=== PATIENT | female | born 1980 | race Caucasian/White ===

== ENCOUNTER 2018-03-07 11:35 | Emergency (ER) | payer BC ==
[2018-03-07 12:28] VITALS: BP 107/71
--- NOTE | 2018-03-07 12:49 | UC ---
UC General HPI - HPI Summary HPI Summary: Patient is complaining of sinus congestion, cough and wheezing for 3 weeks. She states that sinus congestion is really not bothersome it is her cough and wheezing. She admits to being a smoker but denies any history of asthma. she states that when she was younger, she did require nebulizer treatments. She has no associated fever. This morning she also noted a single swollen gland on the right side or neck. - History of Current Complaint Chief Complaint: UCRespiratory Stated Complaint: SKIN COMP NECK/COUGH Time Seen by Provider: 03/07/18 12:37 Hx Obtained From: Patient Hx Last Menstrual Period: 02/27/18 Onset/Duration: Gradual Onset Timing: Constant Pain Intensity: 5 Associated Signs & Symptoms: Positive: Cough, SOB, Wheezing. Negative: Fever - Allergy/Home Medications Allergies/Adverse Reactions: Allergies Allergy/AdvReac Type Severity Reaction Status Date / Time Sulfa (Sulfonamide Allergy Rash Verified 03/07/18 12:28 Antibiotics) PMH/Surg Hx/FS Hx/Imm Hx Previously Healthy: Yes - Surgical History Surgical History: Yes Surgery Procedure, Year, and Place: x 1, T & A - Family History Known Family History: Positive: Diabetes - Social History Occupation: Employed Full-time Lives: With Family Alcohol Use: Rare Substance Use Type: None Smoking Status (MU): Heavy Every Day Tobacco Smoker Type: Cigarettes Amount Used/How Often: 1 ppd Length of Time of Smoking/Using Tobacco: since age 14 Have You Smoked in the Last Year: Yes - Immunization History Vaccination Up to Date: Yes Review of Systems Constitutional: Negative Skin: Negative Eyes: Negative ENT: Sinus Congestion Respiratory: Shortness Of Breath, Cough Cardiovascular: Negative Gastrointestinal: Negative Genitourinary: Negative Motor: Negative Neurovascular: Negative Musculoskeletal: Negative Neurological: Negative Psychological: Negative Is Patient Immunocompromised?: No All Other Systems Reviewed And Are Negative: Yes Physical Exam Triage Information Reviewed: Yes Appearance: Well-Appearing Vital Signs: Initial Vital Signs Temp 97.1 F 03/07/18 12:21 Pulse 68 03/07/18 12:21 Resp 16 03/07/18 12:21 BP 107/71 03/07/18 12:21 Pulse Ox 100 03/07/18 12:21 Vital Signs Reviewed: Yes Eyes: Positive: Conjunctiva Clear ENT: Positive: Pharynx normal, Nasal congestion, TMs normal. Negative: Nasal drainage, Sinus tenderness Neck: Positive: Supple, Nontender, Enlarged Nodes @ - Single right sided cervical node that is tender. Respiratory: Positive: No respiratory distress, Decreased breath sounds, Other: - Cough is congested bronchospastic. Patient has occasional crackles and wheezes to both bases. Cardiovascular: Positive: RRR, No Murmur Abdomen Description: Positive: Nontender, No Organomegaly, Soft. Negative: Distended, Guarding Bowel Sounds: Positive: Present Musculoskeletal: Positive: ROM Intact Neurological: Positive: Alert Psychological: Positive: Age Appropriate Behavior Skin Exam: Normal, Other - Patient has a few excoriated spots on her face and scalp were she admits to picking. There is no associated erythema or drainage. Patient has no additional adenopathy or splenomegaly on exam. Course/Dx - Course Course Of Treatment: Patient is nontoxic and not hypoxic however the duration of her illness with associated bronchospasm and crackles to the bases raises concern for secondary bacterial infection and/or early pneumonia thus I'm going to treat her with doxycycline. I'm also going to add an albuterol inhaler and steroid. The isolated enlarged node on the right side of neck may very well be responding to the areas of excoriation. Explained to the patient that at this time there is any associated secondary infection related to her skin doxycycline would provide her good coverage. Explain the importance of follow- up for this enlarged node in that it must resolve and if not have further evaluation which she acknowledges. - Differential Dx - Multi-Symptom Provider Diagnoses: Acute cough. Bronchospasm. Possible early pneumonia. Left cervical adenopathy. Discharge - Sign-Out/Discharge Documenting (check all that apply): Patient Departure All imaging exams completed and their final reports reviewed: No Studies - Discharge Plan Condition: Stable Disposition: HOME Prescriptions: Albuterol HFA INHALER* [Ventolin HFA Inhaler*] 2 puff INH Q6H #1 mdi DOXYcycline CAP(*) [DOXYcycline 100MG CAP(*)] 100 mg PO BID 10 Days #20 cap predniSONE TAB* [Deltasone 20 MG TAB*] 40 mg PO DAILY 3 Days #6 tab Patient Education Materials: Bronchospasm (ED), Acute Cough (ED) Forms: *Work Release Referrals: Vilma Watson MD [Medical Doctor] - Additional Instructions: Call the [facility] at the number provided. Take the next available appointment with any provider to establish primary care. Go to the ER for any change or worsening. - Billing Disposition and Condition Condition: STABLE Disposition: Home
== END 2018-03-07 12:57 | disposition home or self-care (01) ==
LOC: UCCORT 11:35
DX: J98.01 Acute bronchospasm (principal); R59.9 Enlarged lymph nodes, unspecified; Z88.1 Allergy status to other antibiotic agents
CPT/HCPCS: 99202; G0463